=== PATIENT | male | born 1950 | race Caucasian/White ===

== ENCOUNTER 2020-07-23 10:53 | Emergency (ER) | payer MEDICARE | END 2020-07-23 12:40 | disposition home or self-care (01) | LOC: MADERS 10:53 | DX: M25.511 Pain in right shoulder (principal); S50.811A Abrasion of right forearm, initial encounter; M89.8X2 Other specified disorders of bone, upper arm; I48.91 Unspecified atrial fibrillation; E11.9 Type 2 diabetes mellitus without complications; I10 Essential (primary) hypertension; M10.9 Gout, unspecified; Z85.46 Personal history of malignant neoplasm of prostate; Z86.73 Personal history of transient ischemic attack (TIA), and cerebral infarction without residual deficits; Z79.01 Long term (current) use of anticoagulants; Z79.84 Long term (current) use of oral hypoglycemic drugs; Z79.899 Other long term (current) drug therapy; W01.0XXA Fall on same level from slipping, tripping and stumbling without subsequent striking against object, initial encounter ==